=== PATIENT | male | born 2000 | race Two or more races ===

== ENCOUNTER 2022-05-15 16:04 | Emergency (ER) | payer OTHER ==
[~2022-05-15] VITALS: Ht 170.2 cm; Wt 75.7 kg
[2022-05-15] MEDS ORDERED: IBUPROFEN 800 MG TAB PO ONE (17:15)
[2022-05-15] MEDS ORDERED: IBUP800T27 PO (17:18)
[2022-05-15 17:36] VITALS: BP 117/60
== END 2022-05-15 17:42 | disposition home or self-care (01) ==
LOC: EDBD 16:04 → ER 16:04
DX: S90.32XA Contusion of left foot, initial encounter (principal); X58.XXXA Exposure to other specified factors, initial encounter; Y93.89 Activity, other specified; Y92.89 Other specified places as the place of occurrence of the external cause; Y99.8 Other external cause status
CPT/HCPCS: 73610; 73630

== ENCOUNTER 2022-09-09 14:03 | Emergency (ER) | payer OTHER ==
[~2022-09-09] VITALS: Ht 170.2 cm; Wt 74.5 kg
[~2022-09-09 14:03] MED LIST: IBUP800T27 PO
[2022-09-09 14:24] VITALS: BP 130/76
[2022-09-09] MEDS ORDERED: ASPirin 325 MG TAB PO ONE (16:00)
== END 2022-09-09 18:01 | disposition home or self-care (01) ==
LOC: ER 14:03
DX: M54.2 Cervicalgia (principal); R07.89 Other chest pain; J34.89 Other specified disorders of nose and nasal sinuses; V49.59XA Passenger injured in collision with other motor vehicles in traffic accident, initial encounter; Y93.89 Activity, other specified; Y92.410 Unspecified street and highway as the place of occurrence of the external cause; Y99.8 Other external cause status
CPT/HCPCS: 36415; 70450; 70486; 71045; 72125; 84484; 93005

== ENCOUNTER 2022-10-01 19:13 | Emergency (ER) | payer OTHER ==
[~2022-10-01] VITALS: Ht 170.2 cm; Wt 70.6 kg
[2022-10-01 20:39] VITALS: BP 123/76
[2022-10-01] MEDS ORDERED: ACETAMINOPHEN 325 MG TAB PO ONE (20:45)
[2022-10-01 21:42] LABS: Albumin 4.7 g/dL (3.4-5.0); Potassium 4.1 mmol/L (3.5-5.1)
[2022-10-01 21:45] LABS: BUN/Creatinine Ratio 9.6; Bilirubin, Total 0.9 mg/dL (0.2-1.0); Calcium 9.5 mg/dL (8.5-10.1); Total Protein 8.8 g/dL (6.4-8.2)
[2022-10-01 21:48] LABS: Basophils # (auto) 0 10 ^3/uL (0-0.2); Basophils % (auto) 0.2 % (0.0-2.0); Eosinophils # (auto) 0 10 ^3/uL (0-0.8); Eosinophils % (auto) 0.1 % (0.0-7.0); Hematocrit 46.6 % (41.0-53.0); Hemoglobin 16.5 g/dL (13.5-17.5); Lymphocytes # (auto) 0.6 10 ^3/uL (0.4-5.4); Lymphocytes % (auto) 5.7 % (10.0-50.0); Mean Corpuscular Hemoglobin 32.5 pg (28.0-32.0); Mean Corpuscular Hgb Conc. 35.5 g/dL (32.0-36.0); Mean Corpuscular Volume 91.6 fL (80.0-100.0); Monocytes # (auto) 1.6 10 ^3/uL (0-1.3); Monocytes % (auto) 15.5 % (0.0-12.0); Neutrophils # (auto) 7.8 10 ^3/uL (1.6-8.6); Neutrophils % (auto) 78.5 % (37.0-80.0); Nucleated Red Blood Cells % 0.1 %; Red Blood Cells 5.09 10^6/uL (4.5-5.90); Red Cell Distribution Width 12.6 % (11.8-14.3)
== END 2022-10-01 23:22 | disposition home or self-care (01) ==
LOC: ER 19:13
DX: B34.9 Viral infection, unspecified (principal); M79.10 Myalgia, unspecified site
CPT/HCPCS: 36415; 80053; 85025